=== PATIENT | female | born 1935 | race Caucasian/White ===

== ENCOUNTER 2017-09-10 16:12 | Inpatient (IN) | payer OTHER ==
[~2017-09-10] VITALS: Ht 160 cm; Wt 108.9 kg
[~2017-09-10 16:12] MED LIST: DURICEF 500 MG CAPSULE PO; OXYC1TAB9 PO; XARELTO 10MG PO
[2017-09-13] MEDS ORDERED: COZAAR100 MG PO (14:50)
[2017-09-13] MEDS ORDERED: ULTRAM50 MG (14:51)
[2017-09-15] MEDS ORDERED: HYZAAR 100-12.1 EACH PO (09:40)
[2017-09-15] MEDS ORDERED: METOPROLOL TART50 MG PO (09:40)
[2017-09-15] MEDS ORDERED: XARELTO20 MG PO (09:40)
[2017-09-15] MEDS ORDERED: CEFAZOLIN1 GM/50 ML IV (09:43)
[2017-09-15] MEDS ORDERED: ULTRAM50 MG PO (09:43)
== END 2017-09-15 17:48 | disposition home or self-care (01) | DRG 570 ==
LOC: ER 16:12 → MEDI 22:36 → SURH 22:36
PROC: 0Y9G0ZX Drainage of Left Knee Region, Open Approach, Diagnostic (ICD-10-PCS; principal; 2017-09-10)
PROC: 0JBP0ZZ Excision of Left Lower Leg Subcutaneous Tissue and Fascia, Open Approach (ICD-10-PCS; 2017-09-10)
PROC: 4A033R1 Measurement of Arterial Saturation, Peripheral, Percutaneous Approach (ICD-10-PCS; 2017-09-11)
PROC: 4A12X4Z Monitoring of Cardiac Electrical Activity, External Approach (ICD-10-PCS; 2017-09-11)
PROC: BB24Y0Z Computerized Tomography (CT Scan) of Bilateral Lungs using Other Contrast, Unenhanced and Enhanced (ICD-10-PCS; 2017-09-12)
PROC: B246ZZZ Ultrasonography of Right and Left Heart (ICD-10-PCS; 2017-09-12)
PROC: B54DZZZ Ultrasonography of Bilateral Lower Extremity Veins (ICD-10-PCS; 2017-09-12)
PROC: 02HV33Z Insertion of Infusion Device into Superior Vena Cava, Percutaneous Approach (ICD-10-PCS; 2017-09-14)
PROC: 0JBR0ZZ Excision of Left Foot Subcutaneous Tissue and Fascia, Open Approach (ICD-10-PCS; 2017-09-15)
PROC: 0JBQ0ZZ Excision of Right Foot Subcutaneous Tissue and Fascia, Open Approach (ICD-10-PCS; 2017-09-15)
DX: L02.416 Cutaneous abscess of left lower limb (principal); I50.33 Acute on chronic diastolic (congestive) heart failure; T81.4XXA Infection following a procedure, initial encounter; L97.328 Non-pressure chronic ulcer of left ankle with other specified severity; L97.318 Non-pressure chronic ulcer of right ankle with other specified severity; J90 Pleural effusion, not elsewhere classified; Z96.652 Presence of left artificial knee joint; M17.12 Unilateral primary osteoarthritis, left knee; Y83.8 Other surgical procedures as the cause of abnormal reaction of the patient, or of later complication, without mention of misadventure at the time of the procedure; Y92.098 Other place in other non-institutional residence as the place of occurrence of the external cause; I11.0 Hypertensive heart disease with heart failure; I48.0 Paroxysmal atrial fibrillation; I27.29 Other secondary pulmonary hypertension; R09.02 Hypoxemia; B95.61 Methicillin susceptible Staphylococcus aureus infection as the cause of diseases classified elsewhere; I87.2 Venous insufficiency (chronic) (peripheral); B37.2 Candidiasis of skin and nail
CPT/HCPCS: 71275